=== PATIENT | male | born 1985 | race Caucasian/White ===

== ENCOUNTER 2021-06-15 13:16 | Emergency (ER) | payer OTHER ==
[~2021-06-15] VITALS: Ht 172.7 cm; Wt 88.5 kg
[2021-06-15 13:17] VITALS: BP 135/88
--- NOTE | 2021-06-15 13:19 | NUR ---
Patient BIBA to bed 4 at this time.
--- NOTE | 2021-06-15 13:21 | NUR ---
Dr. Reyes is evaluating pt at bedside
--- NOTE | 2021-06-15 13:21 | NUR ---
37 y/o M BIBA from streets; EMS reports bystanders called 911 for pt laying on road with alcohol cans nearby. Pt A&Ox1 GCS 13, ambulate / follow commands reports drinking 2 beers today. Denies drug use. Denies pain or medical complaint at this time. EMS BS: 127. Socks, gown, and food tray provided at bedside. Bed locked in lowest position, side rails x 2. PMH/Sx/Meds: pt denies NKDA
[2021-06-15 15:30] VITALS: BP 145/86
--- NOTE | 2021-06-15 15:33 | NUR ---
Patient discharged with v/s stable. Written and verbal after care instructions given and explained. Patient verbalized understanding. Ambulatory with steady gait. All questions addressed prior to discharge. Advised to follow up with PMD. Food, homeless waiver signed, homeless packet/alcohol & substance abuse packet provided. Bus fare provided. Pt refused to sign discharge paperwork; witnessed and signatures obtained by 2 RN's.
== END 2021-06-15 15:33 | disposition home or self-care (01) ==
LOC: MED 13:16 → EDBD 13:16 → MED 15:33
DX: F10.129 Alcohol abuse with intoxication, unspecified (principal); Y90.9 Presence of alcohol in blood, level not specified
CPT/HCPCS: 99283